=== PATIENT | male | born 1995 | race African-American/Black ===

== ENCOUNTER 2021-08-18 12:05 | Outpatient (CLI) | payer BC, SELFPAY ==
[2021-08-18 12:10] VITALS: BP 138/91; PULSE 77; RESP 18; TEMP 36.5; O2SAT 97
[2021-08-18 12:12] VITALS: BMI 30.4
[2021-08-18 13:00] VITALS: BP 129/80; PULSE 77; RESP 15; TEMP 36.8; O2SAT 97
[2021-08-18 13:55] VITALS: BP 149/97; PULSE 68; RESP 15; TEMP 36.8; O2SAT 98
== END 2021-08-18 12:06 | disposition home or self-care (01) ==
LOC: OPS 12:06
PROVIDERS: PCP Family Medicine; Visit Provider Nurse Practitioner Family
DX: U07.1 COVID-19 (principal)
CPT/HCPCS: 96365

== ENCOUNTER 2025-02-16 19:38 | Emergency (ER) | payer MEDICAID, SELFPAY ==
[2025-02-16 19:44] VITALS: BP 112/73; PULSE 74; RESP 17; TEMP 36.8; O2SAT 98; BMI 24.5
--- NOTE | 2025-02-16 20:20 | CTR_ITS ---
PROCEDURE INFORMATION: Exam: CT Head Without Contrast Exam date and time: 02/16/2025 8:24 PM Age: 29 years old Clinical indication: Injury or trauma; Other: Blunt trauma to forehead; Blunt trauma (contusions or hematomas); Without loss of consciousness; Dizziness; Additional info: Head injury TECHNIQUE: Imaging protocol: Computed tomography of the head without contrast. Axial, coronal and sagittal reformatted images were created and reviewed. Radiation optimization: All CT scans at this facility use at least one of these dose optimization techniques: automated exposure control; mA and/or kV adjustment per patient size (includes targeted exams where dose is matched to clinical indication); or iterative reconstruction. COMPARISON: [place] thyroid [id number] 08/14/2023 3:44 PM RADIATION DOSE METRICS: Total DLP (mGy-cm): 1026.78 FINDINGS: Brain: No CT evidence of acute intracranial hemorrhage or acute territorial infarction. No significant mass effect or midline shift. Basal cisterns patent. Cerebral ventricles: Normal in size and configuration. Paranasal sinuses: Unremarkable. No fluid levels. Mastoid air cells: Grossly unremarkable. Bones: Unremarkable. No acute fracture. Soft tissues: Grossly unremarkable. CT/CT head wo con* [id number] IMPRESSION: No CT evidence of acute intracranial pathology.
--- NOTE | 2025-02-16 21:10 | ED_ITS ---
HPI - Head Injury General: Chief complaint: Head Injury Stated complaint: Head Injury Time Seen by Provider: 02/16/25 20:32 History of Present Illness: 29-year-old male presents following a he ad injury. Patient reports he hit his head about 3 days ago really hard and sharp. He is continue to have some blurry vision all over the nausea. And some mild difficulty with concentration. Patient presented to outpatient clinic, they sent patient to the ER for further evaluation and imaging. Associated symptoms: Reports nausea; Deny neck pain or vomiting Related Data Home Medications ?Medication ?Instructions ?Recorded ?Confirmed lisinopril 10 mg tablet 10 mg PO DAILY 07/15/2104/15 Previous Rx's ?Medication ?Instructions ?Recorded gabapentin 300 mg capsule 300 mg PO TID #90 caps 06/06 Allergies Allergy/AdvReac Type Severity Reaction Status Date / Time No Known Allergies Allergy Verified 06/06/22 16:02 Review of Systems Const: Denies: fever(s) or chills Resp: Denies: dyspnea or productive cough GI: Reports: nausea; Denies: abdominal pain or vomiting Musc: Denies: neck pain or back pain Neuro: Reports: headache(s) and dizziness Psych: Reports: depression; Denies: anxiety PFSH ED PFSH: Medical History (Updated 06/07/23 @ 13:32 by Kathie Jerome) Cannabis use disorder, mild, abuse Social History (Updated 06/06/22 @ 16:06 by Byron Mccabe LPN) Smoking and tobacco/nicotine status: current every day tobacco/nicotine user e- cigarettes E-Cigarette Details: vaporizer device and with nicotine E-cig/vape details: Refill/q 2 hours. Quit status (tobacco/nicotine): has tried quititng Number of times tried to quit tobacco: 2 Second hand smoke exposure: No Alcohol intake: current Alcohol intake frequency: holidays/special occasions only Alcohol type: beer and hard liquor Substance/Drug Use: current Other substance/drug use details: Kratom powder. Physical Exam Const: COMMON NORMALS: no acute distress, patient oriented x3 and alert HENMT: COMMON NORMALS: normocephalic, atraumatic and hearing grossly normal bilaterally HEAD & SCALP: normocephalic and atraumatic Eye: COMMON NORMALS: Equal, round and reactive pupils present, EOMs intact bilaterally and conjunctivae normal CONJUNCTIVA: Yes conjunctivae normal PUPIL: Yes Equal, round and reactive pupils present Resp: COMMON NORMALS: normal respiratory effort, No use of accessory muscles and clear to auscultation bilaterally AUSCULTATION: clear to auscultation bilaterally Cardio: COMMON NORMALS: regular rate and regular rhythm RATE: regular rate RHYTHM: regular rhythm Extremity: COMMON NORMALS: normal to inspection, full ROM and capillary refill normal Neuro: COMMON NORMALS: patient oriented x3, CN's II-XII intact bilaterally, moves all extremities, no focal motor deficits and no sensory deficits noted SENSORIUM/ORIENTATION: Yes alert Psych: COMMON NORMALS: mental status grossly normal and cooperative Skin: COMMON NORMALS: no rashes or lesions noted and turgor normal GENERAL SKIN EXAM: no rashes or lesions noted and turgor normal Course Vital Signs: Vital signs: Vital Signs Temperature 98.2 F 02/16/25 19:44 Pulse Rate 74 02/16/25 19:44 Respiratory Rate 17 02/16/25 19:44 Blood Pressure 112/73 02/16/25 19:44 Pulse Oximetry 98 02/16/25 19:44 Oxygen Delivery Me thod Room Air 02/16/25 19:44 MDM - Head Injury Medcial Decision Making Patient CT was reviewed and shows no acute findings. Patient's symptoms are very consistent with mild concussion and/postconcussion syndrome. Discussed with him supportive care. Patient stable and discharged home. Lab Data Radiology Impressions Head CT 02/16/25 20:20 IMPRESSION: No CT evidence of acute intracranial pathology. All radiology interpretation(s) finalized by discharge Discharge Plan Discharge Condition: Stable Prescriptions: No Action lisinopril 10 mg tablet 10 mg PO DAILY gabapentin 300 mg capsule 300 mg PO TID Qty: 90 2RF Print Language: Japanese Coding Level of Care Code ED Band Bias Machine Operator for Lamar Fwrudy
== END 2025-02-16 21:28 | disposition home or self-care (01) ==
PROVIDERS: Emergency Provider Student in an Organized Health Care Education/Training Program
DX: S06.0X0A Concussion without loss of consciousness, initial encounter (principal); X58.XXXA Exposure to other specified factors, initial encounter; F17.290 Nicotine dependence, other tobacco product, uncomplicated
CPT/HCPCS: 70450; 99284